=== PATIENT | male | born 1945 | race Caucasian/White ===

== ENCOUNTER 2020-02-15 14:22 | Emergency (ER) | payer MEDICARE, OTHER ==
--- NOTE | 2020-02-15 16:27 | ER Document Report ---
ED Medical Screen (RME) - General Chief Complaint: Arrhythmia Stated Complaint: DIZZINESS Time Seen by Provider: 02/15/20 16:15 Primary Care Provider: EHSAN MARIE [Primary Care Provider] - Follow up as needed Mode of Arrival: Wheelchair Information source: Relative Notes: 74-year-old male presented to ED for irregular heartbeat dizziness unsteady on his feet unable to walk blister to his left eye at about 5:00 he does have a history of macular degeneration. He is states as well as his daughter who is his power of transactional attorney that his dizziness irregular heartbeat and the blister to the left eye all started last night. He is on a pacemaker defibrillator. He states that he often has low blood pressure with his medications. I have greeted and performed a rapid initial assessment of this patient. A comprehensive ED assessment and evaluation of the patient, analysis of test results and completion of medical decision making process will be conducted by a n additional ED providers. - Related Data Allergies/Adverse Reactions: Sulfa (Sulfonamide Antibiotics) Allergy (Verified 06/07/11 13:49) Past Medical History Past Surgical History: Reports: Hx Orthopedic Surgery - knee, shoulder, back surgery - Immunizations Immunizations up to date: Yes Hx Diphtheria, Pertussis, Tetanus Vaccination: Yes Physical Exam - Vital signs Vitals: Temp Pulse Resp BP Pulse Ox 98.0 F 80 20 110/67 97 02/15/20 14:54 02/15/20 14:54 02/15/20 14:54 02/15/20 14:54 02/15/20 14:54 Course - Vital Signs Vital signs: Temp Pulse Resp BP Pulse Ox 98.0 F 80 20 110/67 97 02/15/20 14:54 02/15/20 14:54 02/15/20 14:54 02/15/20 14:54 02/15/20 14:54 Doctor's Discharge - Discharge Referrals: EHSAN MARIE [Primary Care Provider] - Follow up as needed
--- NOTE | 2020-02-15 16:52 | RADIOLOGY REPORT (SQ) ---
EXAM DESCRIPTION: CHEST 2 VIEWS IMAGES COMPLETED DATE/TIME: 02/15/2020 4:36 pm REASON FOR STUDY: Chest pain COMPARISON: 06/07/2011 EXAM PARAMETERS: NUMBER OF VIEWS: two views TECHNIQUE: Digital Frontal and Lateral radiographic views of the chest acquired. RADIATION DOSE: NA LIMITATIONS: none FINDINGS: LUNGS AND PLEURA: Emphysematous change with hyperinflation and mild flattening of the mary phragm. No opacities, masses or pneumothorax. No pleural effusion. MEDIASTINUM AND HILAR STRUCTURES: No masses or contour abnormalities. HEART AND VASCULAR STRUCTURES: Heart normal size. No evidence for failure. BONES: Sternotomy changes. Midthoracic mild compression deformities, similar to prior exam dated Jan. HARDWARE: Left-sided cardiac pacer/ defibrillator with leads overlying right atrium and right ventric le. Sternotomy hardware. OTHER: No other significant finding. IMPRESSION: Chronic changes without evidence of acute cardiopulmonary process. TECHNICAL DOCUMENTATION: JOB ID: [id number] 2010 [employer]- All Rights Reserved Reading location - IP/workstation name: [email or web address]
[2020-02-15 17:18] LABS: ABSOLUTE EOSINOPHILS # (AUTO) 0.2 10^3/uL (0.0-0.6); ABSOLUTE LYMPHOCYTES (AUTO) 1.5 10^3/uL (0.5-4.7); ABSOLUTE MONOCYTES (AUTO) 0.7 10^3/uL (0.1-1.4); ABSOLUTE NEUT (AUTO) 4.3 10^3/uL (1.7-8.2); BASOPHILS % (AUTO) 0.6 % (0-2); EOSINOPHILS % (AUTO) 2.7 % (0-6); HEMATOCRIT 40.2 % (37.9-51.0); HEMOGLOBIN 13.7 g/dL (13.5-17.0); LYMPHOCYTES % (AUTO) 22.3 % (13-45); MEAN CORPUSCULAR HEMOGLOBIN 32.8 pg (27.0-33.4); MEAN CORPUSCULAR HGB CONC 34.2 g/dL (32.0-36.0); MEAN CORPUSCULAR VOLUME 96 fl (80-97); PLATELET COUNT 164 10^3/uL (150-450); RED BLOOD COUNT 4.19 10^6/uL (4.35-5.55); RED CELL DISTRIBUTION WIDTH 13.2 % (11.5-14.0); SEGMENTED NEUTROPHILS % (AUTO) 64.4 % (42-78); TOTAL CELLS COUNTED % (AUTO) 100 %; WHITE BLOOD COUNT 6.6 10^3/uL (4.0-10.5)
[2020-02-15 17:25] LABS: ALBUMIN 4.5 g/dL (3.5-5.0); ALKALINE PHOSPHATASE 81 U/L (38-126); ANION GAP 10 (5-19); ASPARTATE AMINO TRANSFERASE 27 U/L (17-59); BILIRUBIN,DIRECT 0.2 mg/dL (0.0-0.4); BILIRUBIN,TOTAL 0.7 mg/dL (0.2-1.3); BLOOD UREA NITROGEN 21 mg/dL (7-20); CALCIUM 9.6 mg/dL (8.4-10.2); CARBON DIOXIDE 27 mmol/L (22-30); CHLORIDE 104 mmol/L (98-107); GLUCOSE 92 mg/dL (75-110); LITHIUM 0.6 mEq/L (0.6-1.2); TOTAL PROTEIN 7.3 g/dL (6.3-8.2)
--- NOTE | 2020-02-15 19:08 | RADIOLOGY REPORT (SQ) ---
EXAM DESCRIPTION: CT HEAD WITHOUT IMAGES COMPLETED DATE/TIME: 02/15/2020 6:21 pm REASON FOR STUDY: dizziness COMPARISON: Poor positioning. TECHNIQUE: Axial images acquired through the brain without intravenous contrast. Images reviewed wi th bone, brain and subdural windows. Additional sagittal and coronal reconstructions were generated. Images stored on PACS. All CT scanners at this facility use dose modulation, iterative reconstruction, and/or weight based d osing when appropriate to reduce radiation dose to as low as reasonably achievable (ALARA). [facility]: Dose Right [facility]: CareDose [facility]: Dose Right [facility]: Teradose 4D [facility]: Smart [employer] Solutions RADIATION DOSE: CT Rad equipment meets quality standard of care and radiation dose reduction techniq ues were employed. CTDIvol: 53.2 mGy. DLP: 1070 mGy-cm. mGy. LIMITATIONS: None. FINDINGS: VENTRICLES: Normal size and contour. CEREBRUM: No masses. No hemorrhage. No midline shift. No evidence for acute infarction. Normal gra y/white matter differentiation. No areas of low density in the white matter. CEREBELLUM: No masses. No hemorrhage. No alteration of density. No evidence for acute infarction. EXTRAAXIAL SPACES: No fluid collections. No masses. ORBITS AND GLOBE: No intra- or extraconal masses. Normal contour of globe without masses. CALVARIUM: No fracture. PARANASAL SINUSES: No fluid or mucosal thickening. SOFT TISSUES: No mass or hematoma. OTHER: Apparent surgical changes involving the right mastoid air cells. IMPRESSION: NO ACUTE INTRACRANIAL IMAGING FINDINGS. EVIDENCE OF ACUTE STROKE: NO. COMMENT: Quality ID # [id number]: Final reports with documentation of one or more dose reduction techniques (e.g., Automated exposure control, adjustment of the mA and/or kV according to patient size, use of iterative reconstruction technique) TECHNICAL DOCUMENTATION: JOB ID: [id number] 2010 [employer]- All Rights Reserved Reading location - IP/workstation name: [email or web address]
--- NOTE | 2020-02-15 20:18 | ER Document Report ---
Entered by JOSEFINA PALACIOS SCRIBE 02/15/20 [id number] Acting as scribe for:SANDRA ASTORGA MD ED General - General Chief Complaint: Arrhythmia Stated Complaint: DIZZINESS Time Seen by Provider: 02/15/20 16:15 Primary Care Provider: EHSAN MARIE [NO JIMMY MD] - Follow up as needed Mode of Arrival: Wheelchair Information source: Patient, Relative Notes: This 74 year old male patient presents to the emergency department today with complaints of dizziness when ambulating since last night. Daughter at bedside and reports a "blister" to the left corner of his eye and patient reports tearing. Denies any N/V/D, headache, fever, chills, urinary symptoms, trouble with bowel movement, back or neck pain above baseline, or any recent falls. Patient reports spasms to his bilateral lower extremities, which is not new. Patient is ambulatory and has history of hypotension, macular degeneration, mastoidectomy, valve replacement (2018) and pacemaker since 2015 for his ventricular tachycardia. Patient states he is on Lasix, Vitamin B and D, and [place]. Patient states since December, after he takes his 5pm [place], he is dizzy with trouble balancing himself. Patient states he has been on Ga[place] since 2019 for his bipolar disorder and manic depression. Denies history of CABG, coronary stents, strokes, DM, or HTN. Patient is visiting from [place]. Daughter states patient can only drink 32 ounces of water daily. - Related Data Allergies/Adverse Reactions: Sulfa (Sulfonamide Antibiotics) Allergy (Verified 06/07/11 13:49) Past Medical History - General Information source: Patient, Relative - Social History Smoking Status: Unknown if Ever Smoked Family History: Reviewed & Not Pertinent - Past Medical History Cardiac Medical History: Reports: Other - hypotension Denies: Hx Hypertension EENT Medical History: Reports: Eyes - macular degeneration Neurological Medical History: Denies: Hx Cerebrovascular Accident Endocrine Medical History: Denies: Hx Diabetes Mellitus Type 1, Hx Diabetes Mellitus Type 2 Psychiatric Medical History: Reports: Hx Bipolar Disorder, Hx Depression Past Surgical History: Reports: Hx Abdominal Surgery, Hx Orthopedic Surgery - knee, shoulder, back surgery, Hx Pacemaker - 2016, Hx Valve Replacement - 2018, Other - Mastoidectomy. Denies: Hx Coronary Artery Bypass Graft, Hx Coronary Stent - Immunizations Immunizations up to date: Yes Hx Diphtheria, Pertussis, Tetanus Vaccination: Yes Review of Systems - Review of Systems Constitutional: See HPI. denies: Chills, Fever EENT: See HPI, Tearing - left eye with blister Cardiovascular: See HPI, Dizziness Respiratory: No symptoms reported Gastrointestinal: See HPI, Last bowel movement - normal. denies: Diarrhea, Nausea, Vomiting Genitourinary: See HPI Male Genitourinary: No symptoms reported Musculoskeletal: See HPI. denies: Back pain, Neck pain Skin: No symptoms reported Hematologic/Lymphatic: No symptoms reported Neurological/Psychological: See HPI, Tremor - bilateral lower extremities. denies: Headaches -: Yes All other systems reviewed and negative Physical Exam - Vital signs Vitals: Temp Pulse Resp BP Pulse Ox 98.0 F 80 20 110/67 97 02/15/20 14:54 02/15/20 14:54 02/15/20 14:54 02/15/20 14:54 02/15/20 14:54 - General General appearance: Appears well, Alert - HEENT Head: Normocephalic, Atraumatic Pupils: PERRL Ears: Normal External canal: Normal Tympanic membrane: Normal Mucous membranes: Normal Neck: Normal, Supple. No: Carotid bruit Notes: Eyes: Horizontal nystagmus. No vertical nystagmus. Edema to the corner of his left eye with tearing. - Respiratory Respiratory status: No respiratory distress Chest status: Nontender Breath sounds: Normal Chest palpation: Normal - Cardiovascular Rhythm: Other - Pacemaker regulating rhythm Heart sounds: Normal auscultation, S1 appreciated, S2 appreciated Normal capillary refill: Yes - Abdominal Inspection: Healed incision, Other - Soft Distension: No distension Bowel sounds: Normal Tenderness: Nontender - Extremities General upper extremity: Normal inspection, Normal ROM General lower extremity: Normal inspection, Normal ROM. No: Edema - Neurological Neuro grossly intact: Yes Cognition: Normal Orientation: AAOx4 Theresa Coma Scale Eye Opening: Spontaneous Theresa Coma Scale Verbal: Oriented [place] Coma Scale Motor: Obeys Commands Theresa Coma Scale Total: 15 Speech: Normal Additional motor exam normals: Equal finish patcher Sensory: Normal Notes: Tremors to the bilateral lower extremities. - Psychological Associated symptoms: Normal affect, Normal mood - Skin Skin Temperature: Warm Skin Moisture: Dry Skin Color: Normal Course - Re-evaluation Re-evalutation: 02/15/20 20:02 Patient is chief complaint was dizziness and problems with his gait with muscle spasms and and pain shooting pains in his lower extremity. Patient is walking and gait disturbances has worsened over the last 24 to 36 hrs. Is been no trauma and patient has had complaints of peripheral neuropathy and muscle spasm in the legs over a period of time. - Vital Signs Vital signs: Temp Pulse Resp BP Pulse Ox 98.0 F 80 20 110/67 97 02/15/20 14:54 02/15/20 14:54 02/15/20 14:54 02/15/20 14:54 02/15/20 14:54 02/15/20 20:03 Vital signs stable. - Laboratory Results Result Diagrams: 02/15/20 16:53 02/15/20 16:53 Laboratory Results Interpreted: 02/15/20 02/15/20 16:53 16:53 RBC 4.19 L BUN 21 H Creatinine 1.37 H Est GFR (MDRD) Non-Af 51 L 02/15/20 20:04 Laboratories significant for BUN of 21 creatinine 1.37. Has a GFR of 51 which is low. These are not critical lab values inasmuch as we do not know patient's baseline status and patient does have CHF is on fluid restriction and on Lasix therapy and I suggested to the family that they follow-up with their primary care providers to have a chance to contrast and compared these lab values with what his baseline status is. Critical Laboratory Results Reviewed: No Critical Results - Radiology Results Radiology Results Interpreted: 02/15/20 20:05 Chest X-Ray 02/15/20 16:24 IMPRESSION: Chronic changes without evidence of acute cardiopulmonary process. Head CT 02/15/20 18:01 IMPRESSION: NO ACUTE INTRACRANIAL IMAGING FINDINGS. EVIDENCE OF ACUTE STROKE: NO. Chronic changes without evidence of cardiopulmonary process on chest x-ray. CT scan of the head shows no intracranial hemorrhage findings to suggest a stroke no evidence for stroke. Critical Radiology Results Reviewed: No Critical Results - EKG Interpretation by Me Additional EKG results interpreted by me: 02/15/20 20:07 Twelve-lead EKG shows atrial probe placed complexes. Patient has a normal axis left bundle branch block noted ME interval within normal range QRS prolonged QT interval prolonged no evidence for STEMI. Discharge - Discharge Clinical Impression: Dizziness, Gait disturbance, Muscle spasms of both lower extremities Condition: Good Disposition: HOME, SELF-CARE Instructions: Dizziness ([facility]), Meclizine ([facility]) Prescriptions: Meclizine HCl [Antivert 25 mg Tablet] 25 mg PO TID PRN #21 tablet PRN Reason: Tizanidine HCl 4 mg PO QID PRN #30 tablet PRN Reason: muscle spasm Referrals: LOCALMD,NO [NO LOCAL MD] - Follow up as needed I personally performed the services described in the documentation, reviewed and edited the documentation which was dictated to the scribe in my presence, and it accurately records my words and actions.
[2020-02-15 20:52] VITALS: BP 112/72
--- NOTE | 2020-02-16 09:05 | EKG REPORT ---
SEVERITY:- ABNORMAL ECG - ATRIAL-PACED COMPLEXES LEFT BUNDLE BRANCH BLOCK : Confirmed by: Cuba Otoole MD 16-Feb-2020 09:04:02
== END 2020-02-15 20:52 | disposition home or self-care (01) ==
LOC: ER 14:22
DX: R42 Dizziness and giddiness (principal); R26.9 Unspecified abnormalities of gait and mobility; M62.838 Other muscle spasm; M79.606 Pain in leg, unspecified; H55.00 Unspecified nystagmus; S00.82XA Blister (nonthermal) of other part of head, initial encounter; X58.XXXA Exposure to other specified factors, initial encounter; I44.7 Left bundle-branch block, unspecified; I50.9 Heart failure, unspecified; I47.2 Ventricular tachycardia; F31.9 Bipolar disorder, unspecified; Z95.0 Presence of cardiac pacemaker; Z79.899 Other long term (current) drug therapy; Z88.2 Allergy status to sulfonamides
CPT/HCPCS: 36415; 70450; 71046; 80053; 80178; 83735; 83880; 84484; 85025; 93005; 93010; 99285